=== PATIENT | female | born 1995 | race African-American/Black ===

== ENCOUNTER 2021-02-10 08:38 | Inpatient (IN) | payer MEDICAID ==
[~2021-02-10] VITALS: Ht 160 cm; Wt 72.6 kg
--- NOTE | 2021-02-10 08:55 | NUR ---
Patient unable to urine sample at this time
--- NOTE | 2021-02-10 09:01 | NUR ---
at bedside for assessment
[2021-02-10] MEDS ORDERED: diphenhydrAMINE 50 MG/1 ML VIAL IV ONE (09:15)
[2021-02-10] MEDS ORDERED: IV NS 1000 ML 1,000 ML IV ONE ×2 (09:15→10:45)
[2021-02-10] MEDS ORDERED: METOCLOPRAMIDE HCL 10 MG/2 ML VIAL IV ONE (09:15)
[2021-02-10] MEDS ORDERED: METOCLOPRAMIDE HCL 10 MG/2 ML VIAL ONE ×2 (09:16→21:32)
[2021-02-10] MEDS ORDERED: diphenhydrAMINE 50 MG/1 ML VIAL ONE (09:16)
[2021-02-10 09:37] LABS: HEMATOCRIT 47.2 % (31.2-41.9); MEAN CORPUSCULAR HEMOGLOBIN 30.8 uug (24.7-32.8); MEAN CORPUSCULAR VOLUME 88.4 fL (75.5-95.3); PLATELET COUNT (AUTO) 333 K/uL (179-408)
[2021-02-10 09:47] LABS: CARBON DIOXIDE 24 mmol/L (21-32); CHLORIDE 95 mmol/L (98-107); CREATININE 1.6 mg/dL (0.6-1.3); GLUCOSE 115 mg/dL (74-106); POTASSIUM 2.9 mmol/L (3.5-5.1); UREA NITROGEN, BLOOD 26 mg/dL (7-18)
[2021-02-10 09:52] LABS: ALANINE AMINOTRANSFERASE 28 U/L (14-59); ALKALINE PHOSPHATASE 91 U/L (50-136); ASPARTATE AMINOTRANSFERASE 39 U/L (15-37); BILIRUBIN,DIRECT 0.1 mg/dL (0.0-0.2); BILIRUBIN,TOTAL 0.7 mg/dL (0.2-1.0); LIPASE 61 U/L (73-393); TOTAL PROTEIN, SERUM 9.9 g/dL (6.4-8.2)
[2021-02-10] MEDS ORDERED: IV NORMAL SALINE 250 ML IV ONE (09:52)
[2021-02-10] MEDS ORDERED: SWABABLE VALVE TRANSFER SET EA MC ONE (09:52)
[2021-02-10] MEDS ORDERED: IOHEXOL 300MG/ML 100 ML INFUS..BTL ONE (09:52)
--- NOTE | 2021-02-10 10:20 | NUR ---
Patient taken to CT at this time
[2021-02-10] MEDS: MAGNESIUM SULFATE/D5W 100 ML IV SCH ×2 (10:45→11:45)
[2021-02-10] MEDS: POTASSIUM CHLORIDE 50 ML IV SCH ×3 (11:02→12:45)
[2021-02-10] MEDS ORDERED: MAGNESIUM SULFATE/D5W 200 ML ONE (11:04)
[2021-02-10] MEDS ORDERED: POTASSIUM CHLORIDE 150 ML ONE (11:05)
--- NOTE | 2021-02-10 12:27 | NUR ---
JUSTICE DRIVER PAGED FOR PANEL CALL
[2021-02-10 12:58] LABS: *BILIRUBIN,URIN 1+ (NEGATIVE); *BLOOD, URINE 3+ (NEGATIVE); *COLOR,URINE YELLOW (YELLOW); *KETONES,URINE 2+ (NEGATIVE); *UROBILINOGEN,URINE 0.2 E.U./dl (NORMAL); LEUKOCYTE ESTERASE ,URINE NEGATIVE (NEGATIVE); NITRITE, URINE NEGATIVE (NEGATIVE); UGLUCOSE NEGATIVE (NEGATIVE)
[2021-02-10] MEDS ORDERED: Z GUARD REMEDY PASTE 57 GM TUBE TOP PRN (13:00)
[2021-02-10] MEDS ORDERED: ACETAMINOPHEN 650 MG SUPP.RECT RC PRN (13:00)
[2021-02-10] MEDS ORDERED: MORPHINE SULFATE 2 MG/1 ML DISP.SYRIN IV PRN (13:00)
[2021-02-10] MEDS ORDERED: ONDANSETRON 4 MG/2 ML VIAL ONE ×2 (13:12→17:07)
[2021-02-10] MEDS ORDERED: ONDANSETRON 4 MG/2 ML VIAL IV ONE ×2 (13:15→16:45)
[2021-02-10 15:24] LABS: *CLARITY,URINE SLIGHTLY HAZY (CLEAR); BACTERIA,URINE FEW /HPF (NONE SEEN); SQUAMOUS EPITHELIAL CELL,UR FEW /HPF (NONE SEEN)
--- NOTE | 2021-02-10 21:17 | NUR ---
Gave report to NANDINI Dunn.
[2021-02-10] MEDS: METOCLOPRAMIDE HCL 10 MG/2 ML VIAL IV PRN (21:27)
[2021-02-10 22:29] VITALS: BP 139/75
[2021-02-10] MEDS: IV D5 1/2 NS 1000 ML 1,000 ML IV PRN (22:50)
--- NOTE | 2021-02-10 23:01 | NUR ---
Patient admitted, c/o abdominal pain at level 6. Initially agreed to pain medication. But does not want morphine. Medication wasted in pyxis.
--- NOTE | 2021-02-11 00:12 | NUR ---
Unable to perform bedside swallow screen as pt is NPO per MD orders
[2021-02-11 04:00] VITALS: BP 146/76
[2021-02-11] MEDS: METOCLOPRAMIDE HCL 10 MG/2 ML VIAL IV PRN (06:00)
--- NOTE | 2021-02-11 06:00 | NUR ---
Patient still vomiting. PRN reglan administered
[2021-02-11 06:30] LABS: HEMATOCRIT 42.7 % (31.2-41.9); MEAN CORPUSCULAR HEMOGLOBIN 30.8 uug (24.7-32.8); MEAN CORPUSCULAR VOLUME 90.6 fL (75.5-95.3); PLATELET COUNT (AUTO) 302 K/uL (179-408)
[2021-02-11 06:38] LABS: BILIRUBIN,TOTAL 0.8 mg/dL (0.2-1.0); CREATININE 1.2 mg/dL (0.6-1.3); MAGNESIUM 3.5 mg/dL (1.8-2.4); PHOSPHOROUS 2.6 mg/dL (2.5-4.9); POTASSIUM 3.2 mmol/L (3.5-5.1); TOTAL PROTEIN, SERUM 8.1 g/dL (6.4-8.2)
--- NOTE | 2021-02-11 07:53 | NUR ---
Awake, alert, oriented x 4, on moderate high back rest. IVF infusing. NPO maintained.
[2021-02-11 08:00] VITALS: BP 124/81
[2021-02-11 08:04] LABS: THYROID STIMULATING HORMONE 0.571 mIU/mL (0.358-3.740)
[2021-02-11] MEDS: PANTOPRAZOLE SODIUM 40 MG VIAL IV SCH (09:06)
--- NOTE | 2021-02-11 11:00 | NUR ---
K3.2. KCL IV started in decreased rate per patient's request
[2021-02-11] MEDS: POTASSIUM CHLORIDE 50 ML IV SCH ×4 (11:15→15:02)
[2021-02-11 12:00] VITALS: BP 120/60
[2021-02-11] MEDS: METOCLOPRAMIDE HCL 10 MG/2 ML VIAL IV SCH ×3 (13:31→23:50)
[2021-02-11] MEDS: NORTRIPTYLINE HCL 25 MG CAPSULE PO SCH ×2 (13:31→20:37)
--- NOTE | 2021-02-11 15:05 | NUR ---
Refused fourth bag of KCL IV, due to pain in IV site, even with decreased rate.
[2021-02-11 16:00] VITALS: BP 127/82
[2021-02-11] MEDS: IV D5 1/2 NS 1000 ML 1,000 ML IV PRN (16:45)
--- NOTE | 2021-02-11 18:06 | NUR ---
Just taking water/ice chips, even with clear liquids started.
[2021-02-11] MEDS ORDERED: TEMAZEPAM 7.5 MG CAPSULE PO PRN (19:30)
[2021-02-11 20:15] VITALS: BP 137/91
--- NOTE | 2021-02-12 03:43 | NUR ---
AAOx4 Ambulatory ad gavin. VSS. Admitted for abdominal pain. Hx of gastroparesis, heart murmur in the past. VSS. On pain management. Denies any pain at this time. IVF's infusing well. On reglan IV given as scheduled. Tolerated well. No distress noted. Will monitor patient.
[2021-02-12 04:12] VITALS: BP 141/89
[2021-02-12] MEDS: METOCLOPRAMIDE HCL 10 MG/2 ML VIAL IV SCH ×4 (05:36→23:08)
[2021-02-12] MEDS: IV D5 1/2 NS 1000 ML 1,000 ML IV PRN (07:42)
[2021-02-12] MEDS: PANTOPRAZOLE SODIUM 40 MG VIAL IV SCH (08:02)
[2021-02-12] MEDS ORDERED: POTASSIUM CHLORIDE 20 MEQ POWDER PACKET PO ONE (10:30)
[2021-02-12] MEDS ORDERED: POTASSIUM CHLORIDE 20 MEQ TAB.PRT.SR PO ONE (11:00)
[2021-02-12] MEDS: MIRALAX 17 GM POWD.PACK PO SCH (11:47)
[2021-02-12 12:00] VITALS: BP 161/97
[2021-02-12 15:09] VITALS: BP 151/69
[2021-02-12] MEDS: IV 1/2 NS + KCL 20 MEQ BAG 1,000 ML IV PRN (15:10)
--- NOTE | 2021-02-12 19:30 | NUR ---
RECEIVED PT AWAKE, ALERT AND ORIENTEDXC4. PT IN NO ACUTE DISTRESS. IV INTACT. SAFETY AND COMFORT PROVIDED.PT WANTS TO GET SHOWER.WILL CONTINUE TO MONITOR.
[2021-02-12 20:00] VITALS: BP 123/84
[2021-02-12] MEDS: NORTRIPTYLINE HCL 25 MG CAPSULE PO SCH (21:00)
--- NOTE | 2021-02-12 21:00 | NUR ---
PT ASSISTED TO THE BATHROOM TO TAKE SHOWER. PT STABLE AND IN NO ACUTE DISTRESS. IV INTACT.
--- NOTE | 2021-02-12 21:39 | NUR ---
NOTIFY EMILY RAM MANAGEMENT ANALYST REGARDING PT WANT MEDICATION FOR HER ACIDITY ON HER STOMACH. ORDERED SIMETHICONE 80MG [id number].
[2021-02-12] MEDS ORDERED: SIMETHICONE 80 MG TAB.CHEW PO PRN (21:45)
[2021-02-13 04:00] VITALS: BP 102/79
--- NOTE | 2021-02-13 06:05 | NUR ---
PT SLEPT INTERMITTENTLY. PT IN NO ACUTE DISTRESS. IV INTACT. PRESCRIBED MEDICATION GIVEN AND PT TOLERATED IT WELL. MYLICON PRN GIVEN AT 2152H. PT HAD SHOWER LAST NIGHT. PT WANT TO WALK OUTSIDE HER ROOM AT 0130H TOLD PT TO JUST TAKE SOME REST SINCE ITS MEGHA. SAFETY AND COMFORT PROVIDED. ALL NEEDS ARE MET. WILL ENDORSE TO INCOMING NURSE FOR CONTINUITY OF CARE.
[2021-02-13] MEDS: METOCLOPRAMIDE HCL 10 MG/2 ML VIAL IV SCH ×3 (06:20→17:05)
[2021-02-13] MEDS: IV 1/2 NS + KCL 20 MEQ BAG 1,000 ML IV PRN (06:22)
--- NOTE | 2021-02-13 06:55 | NUR ---
PT OBSERVED VOMITING. 80 ML EMESIS OUTPUT
[2021-02-13 08:04] VITALS: BP 122/65
[2021-02-13] MEDS: PANTOPRAZOLE SODIUM 40 MG VIAL IV SCH (08:14)
--- NOTE | 2021-02-13 08:53 | NUR ---
Received this morning in bed hob elevated awake and alert and oriented. No resp distress noted. Iv intact and patent hydration ongoing. Denies pain but verbalized she vomited this morning. Bed is low and locked. Kept comfortable. Call light in reach.
[2021-02-13] MEDS: MIRALAX 17 GM POWD.PACK PO SCH (09:00)
[2021-02-13 09:16] LABS: CREATININE 0.9 mg/dL (0.6-1.3); POTASSIUM 3.3 mmol/L (3.5-5.1)
[2021-02-13] MEDS ORDERED: IBUPROFEN 800 MG TABLET PO PRN (10:45)
--- NOTE | 2021-02-13 10:50 | NUR ---
Dr. Anderson in to see patient. Addendum: 02/13/21 at 1243 by ANUJA GÓMEZ RN wrong patient
--- NOTE | 2021-02-13 12:30 | NUR ---
JUSTICE Plazah in to see the patient.
--- NOTE | 2021-02-13 13:10 | NUR ---
Called and left voicemail for Dr. Fernandes made aware of consult.
[2021-02-13 16:00] VITALS: BP 123/79
--- NOTE | 2021-02-13 16:00 | NUR ---
Patient said she vomited in the toilet. Noted with yellowish liquid emesis. Patient now ambulating in the hallway.
--- NOTE | 2021-02-13 18:21 | NUR ---
Bonnie SARAH made aware of consult.
--- NOTE | 2021-02-13 18:58 | NUR ---
Alert and oriented x4. No respiratory distress. Iv intact fluids ongoing. No significant change in condition. Needs attended.
[2021-02-13 20:00] VITALS: BP 116/61
[2021-02-13] MEDS: NORTRIPTYLINE HCL 25 MG CAPSULE PO SCH (20:30)
[2021-02-14] MEDS: METOCLOPRAMIDE HCL 10 MG/2 ML VIAL IV SCH ×3 (00:04→12:19)
[2021-02-14] MEDS: IV 1/2 NS + KCL 20 MEQ BAG 1,000 ML IV PRN (02:57)
--- NOTE | 2021-02-14 04:45 | NUR ---
PATIENT CALLED AND SAID SHE ROLLED OVER AND HER IV CAME OUT. PATIENT HAD MID-LINE NOTED TO RIGHT UPPER ARM. NOTIFIED DR. ESPINAL. NO NEW ORDERS AT THIS TIME. WILL CONTINUE TO MONITOR AND ASSESS.
[2021-02-14 04:46] VITALS: BP 107/65
[2021-02-14] MEDS ORDERED: PANTOPRAZOLE SODIUM 40 MG TABLET.DR PO SCH (08:07)
[2021-02-14] MEDS: MIRALAX 17 GM POWD.PACK PO SCH (08:08)
[2021-02-14 09:45] LABS: HEMATOCRIT 37.2 % (31.2-41.9); MEAN CORPUSCULAR HEMOGLOBIN 30.9 uug (24.7-32.8); MEAN CORPUSCULAR VOLUME 90.9 fL (75.5-95.3); PLATELET COUNT (AUTO) 223 K/uL (179-408)
[2021-02-14 12:30] VITALS: BP 122/56
[2021-02-14] MEDS ORDERED: PANT40TA2 PO (13:10)
[2021-02-14] MEDS ORDERED: METO-295 PO (13:10)
[2021-02-14] MEDS ORDERED: NORT10CA PO (13:10)
[2021-02-14] MEDS ORDERED: IBUP-1957 PO (13:10)
--- NOTE | 2021-02-14 14:18 | NUR ---
dc orders received noted and carried out,dc instruction and education given to the pt .pt said she will follow up with her pcp in one week
== END 2021-02-14 14:20 | disposition home or self-care (01) | DRG 254 ==
LOC: ER 08:38 → MEDSURG3 22:02
PROVIDERS: ADMIT Hospitalist; ATTEND Nurse Practitioner Acute Care
PROC: 05H533Z Insertion of Infusion Device into Right Subclavian Vein, Percutaneous Approach (ICD-10-PCS; principal; 2021-02-12)
PROC: B546ZZA Ultrasonography of Right Subclavian Vein, Guidance (ICD-10-PCS; principal; 2021-02-12)
DX: K31.84 Gastroparesis (principal); N17.0 Acute kidney failure with tubular necrosis; E86.0 Dehydration; E87.1 Hypo-osmolality and hyponatremia; E87.6 Hypokalemia; F12.90 Cannabis use, unspecified, uncomplicated; F41.0 Panic disorder [episodic paroxysmal anxiety]; F41.9 Anxiety disorder, unspecified; Z20.822 Contact with and (suspected) exposure to COVID-19; Z72.89 Other problems related to lifestyle; R01.1 Cardiac murmur, unspecified
CPT/HCPCS: 36415; 70030-TC; 76700; 83690; 83735; 84100; 84443; 85025; 87086; 93005; A4663; C9113; G0378; J1200; J2270; J2405; J2765; J3475; J3480; J3490; J7030; J7050; Q9967